=== PATIENT | female | born 1995 | race African-American/Black ===

== ENCOUNTER 2023-01-06 00:13 | Emergency (ER) | payer SELFPAY ==
[~2023-01-06] VITALS: Ht 165.1 cm; Wt 77.0 kg
[2023-01-06 04:48] VITALS: BP 111/63; PULSE 89; RESP 16; TEMP 97.8
== END 2023-01-06 04:48 | disposition home or self-care (01) ==
LOC: ER 01:32
DX: T50.905A Adverse effect of unspecified drugs, medicaments and biological substances, initial encounter (principal); X58.XXXA Exposure to other specified factors, initial encounter; F12.10 Cannabis abuse, uncomplicated
CPT/HCPCS: 71045; 99283

== ENCOUNTER 2024-12-07 13:12 | Emergency (ER) | payer MEDICAID ==
[~2024-12-07] VITALS: Ht 165.1 cm; Wt 59.0 kg
[2024-12-07 13:18] VITALS: O2SAT 100
[2024-12-07 14:21] LABS: BASOPHILS % 0.9 % (0.0-2.0); HEMATOCRIT. 38.2 % (36.0-48.0); HEMOGLOBIN. 12.5 g/dL (12.0-16.0); LYMPHOCYTES % 29.1 % (20.0-50.0); MEAN CORPUSCULAR HGB CONC 32.8 g/dL (31.0-37.0); MEAN CORPUSCULAR VOLUME 88.5 fL (81.0-99.0); MEAN PLATELET VOLUME 9.3 fl (7.4-10.4); MONOCYTES % 6.3 % (2.0-8.0); NEUTROPHILS % 62.7 % (40.0-76.0); PLATELET 274 x1000/uL (130-400); RED BLOOD CELL COUNT 4.31 mill/uL (4.2-5.4); RED CELL DISTRIBUTION WIDTH 13.5 % (11.6-14.6); WHITE BLOOD COUNT 8.6 x1000/uL (4.5-11.0)
[2024-12-07] MEDS: SODIUM CHLORIDE 0.9% 1,000 ML IV ONE (14:23)
[2024-12-07 14:24] LABS: CHLORIDE 103 mEq/L (98-107); POTASSIUM 4.3 mEq/L (3.5-5.1); SODIUM 138 mEq/L (136-145)
[2024-12-07 14:25] LABS: CALCIUM 9.6 mg/dL (8.7-10.4); CARBON DIOXIDE 25 mEq/L (21-32)
[2024-12-07 14:30] LABS: CREATININE 0.8 mg/dL (0.6-1.0); GLUCOSE 84 mg/dL (70-105); UREA NITROGEN BLOOD 6 mg/dL (9-23)
[2024-12-07 14:36] LABS: HCG SCREEN NEGATIVE
[2024-12-07 14:55] LABS: ETHANOL BLOOD < 10 mg/dL (<10)
[2024-12-07 15:15] LABS: TROPONIN I HIGH SENSITIVITY < 4 ng/L (3.0-34)
[2024-12-07 15:43] LABS: CLARITY URINE CLEAR (CLEAR); COLOR URINE YELLOW (YELLOW); GLUCOSE URINE NEGATIVE (NEGATIVE); KETONES URINE NEGATIVE (NEGATIVE); LEUKOCYTE ESTERASE URINE NEGATIVE (NEGATIVE); NITRITE URINE NEGATIVE (NEGATIVE); OCCULT BLOOD URINE NEGATIVE (NEGATIVE); PROTEIN URINE NEGATIVE (NEGATIVE); SPECIFIC GRAVITY URINE 1.008 (1.005-1.030); UROBILINOGEN URINE 0.2 E.U./dL (0.2-1.0)
[2024-12-07 16:00] LABS: *AMPHETAMINES SCREEN URINE NEGATIVE (NEGATIVE); *BARBITURATES SCREEN URINE NEGATIVE (NEGATIVE); *BENZODIAZEPINES SCREEN URINE NEGATIVE (NEGATIVE); *COCAINE SCREEN URINE NEGATIVE (NEGATIVE); METHADONE URINE SCREEN NEGATIVE (NEGATIVE); OPIATES URINE SCREEN NEGATIVE (NEGATIVE); PHENCYCLIDINE URINE SCREEN NEGATIVE (NEGATIVE)
[2024-12-07 16:01] LABS: CANNABINOID URINE SCREEN PRESUMPTIVE POSITIVE (NEGATIVE); ECSTASY MDMA SCREEN URINE NEGATIVE (NEGATIVE)
[2024-12-07 16:30] VITALS: BP 105/64; PULSE 77; RESP 20; TEMP 36.7; O2SAT 100
== END 2024-12-07 16:59 | disposition home or self-care (01) ==
LOC: ER 13:12
DX: R55 Syncope and collapse (principal)
CPT/HCPCS: 80305; 80048; 81003; 80320; 84703; 85025; 84484; 36415; 93005; 96360; 99284; J7030; G0480

== ENCOUNTER 2025-06-27 15:15 | Emergency (ER) | payer MEDICAID ==
[~2025-06-27] VITALS: Ht 162.6 cm; Wt 63.0 kg
[2025-06-27 15:34] VITALS: TEMP 36.7; O2SAT 99
[2025-06-27 16:46] LABS: BASOPHILS % 1.0 % (0.0-2.0); EOSINOPHILS % 1.6 % (0.0-5.0); HEMATOCRIT. 36.9 % (36.0-48.0); HEMOGLOBIN. 12.1 g/dL (12.0-16.0); LYMPHOCYTES % 21.2 % (20.0-50.0); MEAN PLATELET VOLUME 9.3 fl (7.4-10.4); MONOCYTES % 7.1 % (2.0-8.0); NEUTROPHILS % 69.1 % (40.0-76.0); PLATELET 260 x1000/uL (130-400); RED BLOOD CELL COUNT 4.20 mill/uL (4.2-5.4); RED CELL DISTRIBUTION WIDTH 13.2 % (11.6-14.6)
[2025-06-27 17:02] LABS: CREATININE 0.8 mg/dL (0.6-1.0); UREA NITROGEN BLOOD 11 mg/dL (9-23)
[2025-06-27 17:46] LABS: CLARITY URINE CLEAR (CLEAR); COLOR URINE YELLOW (YELLOW); GLUCOSE URINE NEGATIVE (NEGATIVE); KETONES URINE TRACE (NEGATIVE); LEUKOCYTE ESTERASE URINE NEGATIVE (NEGATIVE); NITRITE URINE NEGATIVE (NEGATIVE); OCCULT BLOOD URINE NEGATIVE (NEGATIVE); PH URINE 5.5 (4.5-8.0); PROTEIN URINE NEGATIVE (NEGATIVE); SPECIFIC GRAVITY URINE 1.016 (1.005-1.030); UROBILINOGEN URINE 0.2 E.U./dL (0.2-1.0)
[2025-06-27 17:50] LABS: HCG SCREEN NEGATIVE
[2025-06-27] MEDS ORDERED: ALBU18HF2 IH (18:02)
[2025-06-27 18:15] VITALS: BP 109/61; PULSE 82; RESP 14; O2SAT 100
== END 2025-06-27 18:30 | disposition home or self-care (01) ==
LOC: ER 15:15
DX: R06.02 Shortness of breath (principal)
CPT/HCPCS: 36415; 71045; 80048; 81003; 81025; 84703; 85025; 93005; 99285